=== PATIENT | male | born 1970 | race Two or more races ===

== ENCOUNTER 2019-06-28 07:14 | Inpatient (IN) | payer OTHER ==
[~2019-06-28] VITALS: Ht 170.2 cm; Wt 54.0 kg
[2019-06-28] MEDS ORDERED: PROPOFOL 1000 MG/ISO-OSM 100 ML IV ONE (07:29)
[2019-06-28] MEDS ORDERED: KETAMINE HCL 50 MG/ML 10 ML VIAL IM ONE (07:45)
[2019-06-28] MEDS ORDERED: SUCCINYLCHOLINE CHLORIDE 20 MG/ML 10 ML VIAL IVP ONE (07:45)
[2019-06-28] MEDS ORDERED: ETOMIDATE 2 MG/ML 10 ML VIAL IVP ONE (07:45)
[2019-06-28] MEDS ORDERED: LORazepam 2 MG/ML VIAL IVP ONE (07:45)
[2019-06-28] MEDS: PROPOFOL 1000 MG/ISO-OSM 100 ML IV PRN ×2 (07:59→20:08)
[2019-06-28] MEDS ORDERED: PIPERACILLIN/TAZO 3.375 GM/D5W 50 ML IV ONE ×2 (08:00→16:00)
[2019-06-28 08:32] LABS: BASOPHILS % (AUTO) 0.8 % (0.0-2.0); EOSINOPHILS % (AUTO) 0.9 % (1.0-6.0); HEMATOCRIT 39.1 % (41-53); HEMOGLOBIN 12.6 g/dL (13.5-17.5); LYMPHOCYTES # (AUTO) 1.6 K/uL (1.0-4.8); LYMPHOCYTES % (AUTO) 16.7 % (22.0-44.0); MEAN CORPUSCULAR HEMOGLOBIN 25.9 pg (26.0-34.0); MEAN CORPUSCULAR HGB CONC 32.1 G/dL (31.0-37.0); MEAN CORPUSCULAR VOLUME 81 fL (80-100); MONOCYTES # (AUTO) 0.6 K/uL (0.1-1.0); NEUTROPHILS # (AUTO) 7.2 K/uL (1.8-7.7); NEUTROPHILS % (AUTO) 75.6 % (40.0-70.0); PLATELET COUNT (AUTO) 220 K/uL (150-450); RED BLOOD CELL COUNT(AUTO) 4.84 MIL/uL (4.50-5.90); RED CELL DISTRIBUTION WIDTH 14.4 % (11.5-14.5)
[2019-06-28 08:40] LABS: APPEARANCE,URINE CLEAR (CLEAR); BILIRUBIN,URINE NEGATIVE (NEGATIVE); GLUCOSE, URINE (UA) 100 mg/dL (NEGATIVE); KETONES,URINE NEGATIVE (NEGATIVE); LEUKOCYTE ESTERASE ,URINE NEGATIVE (NEGATIVE); NITRATE,URINE NEGATIVE (NEGATIVE); OCCULT BLOOD,URINE NEGATIVE (NEGATIVE); PH,URINE 5.5 (5.0-8.0); PROTEIN,URINE POS 1+ (NEGATIVE)
[2019-06-28 08:43] LABS: ANION GAP 10 mmol/L (8-16); CARBON DIOXIDE 23 mmol/L (22-29); CHLORIDE 105 mmol/L (98-107); CREATININE 1.11 mg/dL (0.60-1.30); GLOMERULAR FILTR. RATE CALC > 60 mL/min (>60); GLUCOSE,RANDOM 200 mg/dL (70-110); POTASSIUM 4.1 mmol/L (3.5-5.1); SODIUM SERUM 138 mmol/L (136-145); UREA NITROGEN, BLOOD 22 mg/dL (7-18)
[2019-06-28 08:44] LABS: INR 1.1 (0.9-1.1); PROTHROMBIN TIME 11.3 SEC (9.4-11.6)
[2019-06-28 08:44] LABS: AMPHET/METH SCREEN,URINE POSITIVE (NEGATIVE); BARBITURATE SCREEN, URINE NEGATIVE (NEGATIVE); BENZODIAZEPINES SCREEN,URINE NEGATIVE (NEGATIVE); CANNABINOID SCREEN,URINE NEGATIVE (NEGATIVE); COCAINE SCREEN,URINE NEGATIVE (NEGATIVE); METHADONE SCREEN, URINE POSITIVE (NEGATIVE); OPIATE SCREEN,URINE POSITIVE (NEGATIVE)
[2019-06-28 08:45] LABS: PHENCYCLIDINE SCREEN,URINE NEGATIVE (NEGATIVE)
[2019-06-28 08:49] LABS: RBC,URINE None Seen /HPF (0-2); WBC,URINE 0-2 /HPF (0-5)
[2019-06-28 08:50] LABS: BACTERIA,URINE None Seen /HPF (None Seen); SQUAMOUS EPITHELIAL CELL,UR Few /LPF (None Seen)
[2019-06-28 08:55] LABS: B-TYPE NATRIURETIC PEPTIDE 2770 pg/mL (0-100)
[2019-06-28 09:08] LABS: ALANINE AMINOTRANSFERASE 46 U/L (12-78); ALBUMIN 2.9 g/dL (3.4-5.0); ALKALINE PHOSPHATASE 132 U/L (46-116); ASPARTATE AMINOTRANSFERASE 58 U/L (15-37); BILIRUBIN,TOTAL 0.6 mg/dL (0.1-1.0); CREATINE KINASE, TOTAL ONLY 169 U/L (39-308); TOTAL PROTEIN, SERUM 7.4 g/dL (6.4-8.2)
[2019-06-28 09:15] LABS: ABG A-A DIFF O2 567.4 mmHg (10-20.0); ABG BASE EXCESS -3.9 mmol/L (-2.0-3.0); ABG HCO3 21.2 mmol/L (22.0-26.0); ABG METHEMOGLOBIN 0.3 % (0.0-1.5); ABG OXYGEN CONTENT 15.8 mL/dL (15.0-23.0); ABG OXYGEN SATURATION 96.1 % (95.0-98.0); ABG OXYHEMOGLOBIN 94.9 % (94.0-100.0); ABG PCO2 48 mmHg (35-45); ABG PH 7.295 (7.35-7.450); ABG TOTAL HEMOGLOBIN 11.8 G/dL (12.0-18.0); O2 DEVICE,BLOOD GAS VENTILATOR (ROOM AIR); PEEP,BG 5 cm H2O; PO2, ARTERIAL BG 94.9 mmHg (88.0-96.0); SITE, BLOOD GAS RT RADIAL; SOURCE, BLOOD GAS ARTERIAL; TEMPERATURE, FAHRENHEIT, BG 100.7 FAHREN (96.0-98.6); VT, ABG 500 ml
[2019-06-28] MEDS ORDERED: FUROSEMIDE 40 MG/4 ML VIAL IVP ONE (09:15)
[2019-06-28] MEDS ORDERED: DEXTROSE 50%-WATER 25 GM/50 ML SYRINGE IVP PRN (09:45)
[2019-06-28] MEDS ORDERED: SODIUM CHLORIDE 0.9% 1,000 ML IV ONE (09:45)
[2019-06-28] MEDS ORDERED: VANCOMYCIN HCL 1 GM/D5% WATER 200 ML IV ONE (10:00)
[2019-06-28] MEDS ORDERED: MAGNESIUM HYDROXIDE SUSPENSION 30 ML UDCUP PO PRN (10:00)
[2019-06-28] MEDS: DOXYCYCLINE HYCLATE 100 MG in DEXTROSE 5%-WATER 100 ML IV SCH (15:15)
[2019-06-28 16:00] VITALS: BP 157/99
[2019-06-28 16:17] VITALS: BP 157/99
[2019-06-28 16:44] LABS: INFLUENZA TYPE A NEGATIVE FOR TYPE A (NEGATIVE); INFLUENZA TYPE B NEGATIVE FOR TYPE B (NEGATIVE)
[2019-06-28] MEDS: PIPERACILLIN/TAZO 3.375 GM/D5W 50 ML IV SCH (17:55)
[2019-06-28] MEDS: HEPARIN SODIUM,PORCINE 5,000 UNITS/ML VIAL SQ SCH (18:10)
[2019-06-28] MEDS: VANCOMYCIN HCL 1.25 GM in DEXTROSE 5%-WATER 250 ML IV SCH (19:49)
[2019-06-28 20:00] VITALS: BP 157/97
[2019-06-28] MEDS: ACETAMINOPHEN 325 MG TABLET PO PRN (20:03)
[2019-06-28] MEDS: DOCUSATE SODIUM 100 MG CAPSULE PO SCH (21:11)
[2019-06-28] MEDS: HydrALAZINE HCL 20 MG/ML VIAL IVP PRN (21:34)
[2019-06-28] MEDS: LORazepam 2 MG/ML VIAL IVP PRN (22:10)
[2019-06-29] VITALS: BP 144/76
[2019-06-29] MEDS: PROPOFOL 1000 MG/ISO-OSM 100 ML IV PRN ×5 (00:38→21:28)
[2019-06-29] MEDS: DOXYCYCLINE HYCLATE 100 MG in DEXTROSE 5%-WATER 100 ML IV SCH ×2 (02:43→18:38)
[2019-06-29 02:46] LABS: GLUCOSE,POINT OF CARE 104 MG/DL (70-110)
[2019-06-29 02:46] LABS: GLUCOSE,POINT OF CARE 73 MG/DL (70-110)
[2019-06-29 04:00] VITALS: BP 158/83
[2019-06-29 05:23] LABS: ANION GAP 8 mmol/L (8-16); CALCIUM, TOTAL 7.8 mg/dL (8.8-10.5); CARBON DIOXIDE 28 mmol/L (22-29); CHLORIDE 104 mmol/L (98-107); CREATININE 0.86 mg/dL (0.60-1.30); GLOMERULAR FILTR. RATE CALC > 60 mL/min (>60); GLUCOSE,RANDOM 92 mg/dL (70-110); POTASSIUM 3.1 mmol/L (3.5-5.1); SODIUM SERUM 140 mmol/L (136-145)
[2019-06-29 05:29] LABS: UREA NITROGEN, BLOOD 18 mg/dL (7-18)
[2019-06-29 06:01] LABS: GLUCOSE,POINT OF CARE 104 MG/DL (70-110)
[2019-06-29] MEDS: PIPERACILLIN/TAZO 3.375 GM/D5W 50 ML IV SCH ×4 (06:20→18:38)
[2019-06-29] MEDS: HydrALAZINE HCL 20 MG/ML VIAL IVP PRN ×2 (06:26→16:23)
[2019-06-29 06:41] LABS: GLUCOSE,POINT OF CARE 86 MG/DL (70-110)
[2019-06-29 07:16] LABS: HIV 1-2 SCREEN 4TH GEN W/RFLX Non Reactive (Non Reactive)
[2019-06-29 08:00] VITALS: BP 142/99
[2019-06-29] MEDS: HEPARIN SODIUM,PORCINE 5,000 UNITS/ML VIAL SQ SCH ×3 (08:42→18:38)
[2019-06-29] MEDS: VANCOMYCIN HCL 1.25 GM in DEXTROSE 5%-WATER 250 ML IV SCH ×2 (08:43→20:00)
[2019-06-29] MEDS: DOCUSATE SODIUM 100 MG CAPSULE PO SCH ×2 (08:43→20:12)
[2019-06-29] MEDS: FAMOTIDINE 20 MG TABLET PO SCH (08:43)
[2019-06-29] MEDS ORDERED: SODIUM CHLORIDE 0.9% 1,000 ML IV ONE (08:50)
[2019-06-29] MEDS ORDERED: POTASSIUM CHLORIDE 20 MEQ ER TABLET PO PRN (10:15)
[2019-06-29] MEDS: POTASSIUM CHL 10 MEQ/WATER 50 ML IV PRN ×3 (10:47→16:45)
[2019-06-29] MEDS ORDERED: SODIUM CHLORIDE 0.9% 500 ML IV ONE (10:49)
[2019-06-29] MEDS: LORazepam 2 MG/ML VIAL IVP PRN (11:24)
[2019-06-29 12:00] VITALS: BP 142/99
[2019-06-29 13:02] LABS: GLUCOSE,POINT OF CARE 86 MG/DL (70-110)
[2019-06-29 16:00] VITALS: BP 163/100
[2019-06-29 19:06] LABS: GLUCOSE,POINT OF CARE 88 MG/DL (70-110)
[2019-06-29 20:00] VITALS: BP 148/79
[2019-06-29] MEDS ORDERED: INFLUENZA VIRUS VACCINE QVS 2019-20 (3YR+)/PF 60 MCG/0.5 ML SYRINGE IM ONE (20:45)
[2019-06-29] MEDS ORDERED: PNEUMOCOCCAL VACCINE POLYVALENT 0.5 ML VIAL [PPSV23] IM ONE (20:45)
[2019-06-29] MEDS: INSULIN REGULAR, HUMAN 100 UNITS/ML SQ PRN (23:09)
[2019-06-30] VITALS (8 sets, daily range): BP systolic 122–159; BP diastolic 68–105
[2019-06-30] MEDS: HEPARIN SODIUM,PORCINE 5,000 UNITS/ML VIAL SQ SCH ×3 (00:01→15:54)
[2019-06-30] MEDS: HydrALAZINE HCL 20 MG/ML VIAL IVP PRN ×2 (00:04→08:38)
[2019-06-30] MEDS: PIPERACILLIN/TAZO 3.375 GM/D5W 50 ML IV SCH ×4 (00:49→17:55)
[2019-06-30] MEDS ORDERED: SODIUM CHLORIDE 0.9% 250 ML IV ONE ×2 (00:52→18:02)
[2019-06-30] MEDS: PROPOFOL 1000 MG/ISO-OSM 100 ML IV PRN ×5 (02:41→21:21)
[2019-06-30] MEDS: DOXYCYCLINE HYCLATE 100 MG in DEXTROSE 5%-WATER 100 ML IV SCH ×2 (03:25→15:20)
[2019-06-30] MEDS: LORazepam 2 MG/ML VIAL IVP PRN ×3 (04:44→21:24)
[2019-06-30 05:44] LABS: BASOPHILS % (AUTO) 0.7 % (0.0-2.0); EOSINOPHILS % (AUTO) 1.4 % (1.0-6.0); HEMATOCRIT 31.8 % (41-53); HEMOGLOBIN 10.5 g/dL (13.5-17.5); LYMPHOCYTES # (AUTO) 0.8 K/uL (1.0-4.8); MEAN CORPUSCULAR HGB CONC 33.1 G/dL (31.0-37.0); MEAN CORPUSCULAR VOLUME 79 fL (80-100); MONOCYTES # (AUTO) 0.5 K/uL (0.1-1.0); MONOCYTES % (AUTO) 9.2 % (2.0-9.0); NEUTROPHILS # (AUTO) 3.7 K/uL (1.8-7.7); NEUTROPHILS % (AUTO) 72.7 % (40.0-70.0); PLATELET COUNT (AUTO) 163 K/uL (150-450); RED BLOOD CELL COUNT(AUTO) 4.05 MIL/uL (4.50-5.90); RED CELL DISTRIBUTION WIDTH 14.6 % (11.5-14.5)
[2019-06-30 05:59] LABS: ANION GAP 8 mmol/L (8-16); CALCIUM, TOTAL 8.3 mg/dL (8.8-10.5); CARBON DIOXIDE 27 mmol/L (22-29); CHLORIDE 106 mmol/L (98-107); GLOMERULAR FILTR. RATE CALC > 60 mL/min (>60); GLUCOSE,RANDOM 108 mg/dL (70-110); POTASSIUM 3.2 mmol/L (3.5-5.1); SODIUM SERUM 141 mmol/L (136-145); UREA NITROGEN, BLOOD 17 mg/dL (7-18); VANCOMYCIN,RANDOM 24.8 mcg/mL (25.0-50.0)
[2019-06-30] MEDS: POTASSIUM CHL 10 MEQ/WATER 50 ML IV PRN ×3 (06:27→11:06)
[2019-06-30 07:27] LABS: GLUCOSE,POINT OF CARE 98 MG/DL (70-110)
[2019-06-30 07:27] LABS: GLUCOSE,POINT OF CARE 113 MG/DL (70-110)
[2019-06-30] MEDS: VANCOMYCIN HCL 1.25 GM in DEXTROSE 5%-WATER 250 ML IV SCH ×2 (08:28→20:02)
[2019-06-30] MEDS: DOCUSATE SODIUM 100 MG CAPSULE PO SCH ×2 (09:00→21:18)
[2019-06-30] MEDS: FAMOTIDINE 20 MG TABLET PO SCH (09:54)
[2019-06-30 13:16] LABS: GLUCOSE,POINT OF CARE 122 MG/DL (70-110)
[2019-06-30 18:16] LABS: GLUCOSE,POINT OF CARE 88 MG/DL (70-110)
[2019-06-30] MEDS ORDERED: 0.9% SODIUM CHLORIDE 15 ML NEB SOLUTION NEB ONE (21:48)
[2019-07-01] VITALS: BP 133/84
[2019-07-01] MEDS: PIPERACILLIN/TAZO 3.375 GM/D5W 50 ML IV SCH ×5 (00:08→23:50)
[2019-07-01] MEDS: HEPARIN SODIUM,PORCINE 5,000 UNITS/ML VIAL SQ SCH ×4 (00:08→23:50)
[2019-07-01] MEDS: DOXYCYCLINE HYCLATE 100 MG in DEXTROSE 5%-WATER 100 ML IV SCH ×2 (03:00→15:35)
[2019-07-01] MEDS ORDERED: SODIUM CHLORIDE 0.9% 250 ML IV ONE ×2 (03:03→20:56)
[2019-07-01 04:00] VITALS: BP 152/73
[2019-07-01] MEDS: PROPOFOL 1000 MG/ISO-OSM 100 ML IV PRN ×4 (04:24→23:23)
[2019-07-01 07:21] LABS: GLUCOSE,POINT OF CARE 128 MG/DL (70-110)
[2019-07-01 07:21] LABS: GLUCOSE,POINT OF CARE 104 MG/DL (70-110)
[2019-07-01] MEDS: VANCOMYCIN HCL 1.25 GM in DEXTROSE 5%-WATER 250 ML IV SCH ×2 (07:46→20:58)
[2019-07-01 09:02] LABS: ALANINE AMINOTRANSFERASE 31 U/L (12-78); ALBUMIN 2.4 g/dL (3.4-5.0); ALKALINE PHOSPHATASE 96 U/L (46-116); ANION GAP 7 mmol/L (8-16); ASPARTATE AMINOTRANSFERASE 36 U/L (15-37); BILIRUBIN,TOTAL 0.5 mg/dL (0.1-1.0); CALCIUM, TOTAL 8.6 mg/dL (8.8-10.5); CARBON DIOXIDE 29 mmol/L (22-29); CHLORIDE 107 mmol/L (98-107); CREATININE 0.93 mg/dL (0.60-1.30); GLOMERULAR FILTR. RATE CALC > 60 mL/min (>60); GLUCOSE,RANDOM 124 mg/dL (70-110); PHOSPHORUS 4.2 mg/dL (2.5-4.9); POTASSIUM 3.7 mmol/L (3.5-5.1); SODIUM SERUM 143 mmol/L (136-145); TOTAL PROTEIN, SERUM 6.4 g/dL (6.4-8.2); UREA NITROGEN, BLOOD 17 mg/dL (7-18)
[2019-07-01] MEDS: LORazepam 2 MG/ML VIAL IVP PRN (09:09)
[2019-07-01] MEDS: FAMOTIDINE 20 MG TABLET PO SCH (09:09)
[2019-07-01] MEDS: DOCUSATE SODIUM 100 MG CAPSULE PO SCH ×2 (09:09→20:58)
[2019-07-01] MEDS: MORPHINE SULFATE 2 MG/ML SYRINGE IVP PRN (09:52)
[2019-07-01] MEDS ORDERED: FentaNYL CITRATE PF 500 MCG in DEXTROSE 5%-WATER 90 ML IV PRN ×2 (10:30→11:04)
[2019-07-01 10:57] LABS: ABG A-A DIFF O2 143.3 mmHg (10-20.0); ABG BASE EXCESS 0.6 mmol/L (-2.0-3.0); ABG CARBOXYHEMOGLOBIN 0.5 % (0.0-1.5); ABG HCO3 25.3 mmol/L (22.0-26.0); ABG METHEMOGLOBIN 0.3 % (0.0-1.5); ABG OXYGEN CONTENT 15.6 mL/dL (15.0-23.0); ABG OXYGEN SATURATION 95.1 % (95.0-98.0); ABG OXYHEMOGLOBIN 94.3 % (94.0-100.0); ABG PCO2 34 mmHg (35-45); ABG PH 7.472 (7.35-7.450); ABG TOTAL HEMOGLOBIN 11.7 G/dL (12.0-18.0); PO2, ARTERIAL BG 67.5 mmHg (88.0-96.0); SOURCE, BLOOD GAS ARTERIAL
[2019-07-01 10:58] LABS: O2 DEVICE,BLOOD GAS VENTILATOR (ROOM AIR); PEEP,BG 5 cm H2O; SITE, BLOOD GAS RT RADIAL; VT, ABG 500 ml
[2019-07-01 11:48] LABS: BASOPHILS % (AUTO) 0.8 % (0.0-2.0); EOSINOPHILS % (AUTO) 0.7 % (1.0-6.0); HEMATOCRIT 34.9 % (41-53); HEMOGLOBIN 11.2 g/dL (13.5-17.5); LYMPHOCYTES # (AUTO) 0.7 K/uL (1.0-4.8); LYMPHOCYTES % (AUTO) 12.5 % (22.0-44.0); MEAN CORPUSCULAR HEMOGLOBIN 25.3 pg (26.0-34.0); MEAN CORPUSCULAR VOLUME 79 fL (80-100); MONOCYTES # (AUTO) 0.5 K/uL (0.1-1.0); MONOCYTES % (AUTO) 8.2 % (2.0-9.0); NEUTROPHILS # (AUTO) 4.4 K/uL (1.8-7.7); NEUTROPHILS % (AUTO) 77.8 % (40.0-70.0); PLATELET COUNT (AUTO) 195 K/uL (150-450); RED BLOOD CELL COUNT(AUTO) 4.41 MIL/uL (4.50-5.90); RED CELL DISTRIBUTION WIDTH 14.6 % (11.5-14.5)
[2019-07-01 13:04] VITALS: BP 154/92
[2019-07-01] MEDS: QUEtiapine FUMARATE 25 MG TABLET PO SCH ×2 (15:35→21:02)
[2019-07-01 16:00] VITALS: BP 140/84
[2019-07-01 16:11] LABS: GLUCOSE,POINT OF CARE 86 MG/DL (70-110)
[2019-07-01 18:11] LABS: GLUCOSE,POINT OF CARE 95 MG/DL (70-110)
[2019-07-01 20:00] VITALS: BP 147/85
[2019-07-01] MEDS ORDERED: QUEtiapine FUMARATE 25 MG TABLET PO SCH (21:00)
[2019-07-01] MEDS: AMINO ACIDS/PROTEIN HYDROLYS 30 ML TUBE PO SCH (21:00)
[2019-07-02] VITALS (8 sets, daily range): BP systolic 150–180; BP diastolic 86–123
[2019-07-02 00:26] LABS: GLUCOSE,POINT OF CARE 100 MG/DL (70-110)
[2019-07-02] MEDS: DOXYCYCLINE HYCLATE 100 MG in DEXTROSE 5%-WATER 100 ML IV SCH ×2 (02:56→15:30)
[2019-07-02] MEDS: LORazepam 2 MG/ML VIAL IVP PRN ×2 (03:39→14:02)
[2019-07-02 04:59] LABS: ANION GAP 6 mmol/L (8-16); CALCIUM, TOTAL 8.3 mg/dL (8.8-10.5); CARBON DIOXIDE 30 mmol/L (22-29); CHLORIDE 110 mmol/L (98-107); CREATININE 0.91 mg/dL (0.60-1.30); GLOMERULAR FILTR. RATE CALC > 60 mL/min (>60); GLUCOSE,RANDOM 104 mg/dL (70-110); POTASSIUM 3.2 mmol/L (3.5-5.1); SODIUM SERUM 146 mmol/L (136-145); UREA NITROGEN, BLOOD 18 mg/dL (7-18)
[2019-07-02] MEDS: PROPOFOL 1000 MG/ISO-OSM 100 ML IV PRN (05:27)
[2019-07-02] MEDS: PIPERACILLIN/TAZO 3.375 GM/D5W 50 ML IV SCH ×3 (05:50→17:49)
[2019-07-02] MEDS: POTASSIUM CHL 10 MEQ/WATER 50 ML IV PRN ×3 (06:30→08:21)
[2019-07-02] MEDS: HEPARIN SODIUM,PORCINE 5,000 UNITS/ML VIAL SQ SCH ×2 (08:00→17:48)
[2019-07-02 08:11] LABS: ABG A-A DIFF O2 87.4 mmHg (10-20.0); ABG BASE EXCESS 2.2 mmol/L (-2.0-3.0); ABG CARBOXYHEMOGLOBIN 0.6 % (0.0-1.5); ABG HCO3 26.5 mmol/L (22.0-26.0); ABG METHEMOGLOBIN 0.3 % (0.0-1.5); ABG OXYGEN SATURATION 98.6 % (95.0-98.0); ABG OXYHEMOGLOBIN 97.7 % (94.0-100.0); ABG PCO2 37 mmHg (35-45); ABG PH 7.467 (7.35-7.450); ABG TOTAL HEMOGLOBIN 11.5 G/dL (12.0-18.0); PO2, ARTERIAL BG 119.5 mmHg (88.0-96.0); SOURCE, BLOOD GAS ARTERIAL; TEMPERATURE, FAHRENHEIT, BG 98.6 FAHREN (96.0-98.6)
[2019-07-02 08:13] LABS: O2 DEVICE,BLOOD GAS VENTILATOR (ROOM AIR); SITE, BLOOD GAS RT RADIAL; VT, ABG 500 ml
[2019-07-02 08:14] LABS: PEEP,BG 5 cm H2O
[2019-07-02 08:16] LABS: GLUCOSE,POINT OF CARE 89 MG/DL (70-110)
[2019-07-02] MEDS: QUEtiapine FUMARATE 25 MG TABLET PO SCH ×2 (08:16→21:17)
[2019-07-02] MEDS: FAMOTIDINE 20 MG TABLET PO SCH (08:16)
[2019-07-02] MEDS: DOCUSATE SODIUM 100 MG CAPSULE PO SCH ×2 (08:16→21:16)
[2019-07-02] MEDS: MULTIVITAMINS WITH MINERALS, THERAPEUTIC 15 ML UDCUP NG SCH (08:16)
[2019-07-02] MEDS: VANCOMYCIN HCL 1.25 GM in DEXTROSE 5%-WATER 250 ML IV SCH ×2 (08:17→20:59)
[2019-07-02] MEDS: AMINO ACIDS/PROTEIN HYDROLYS 30 ML TUBE PO SCH ×2 (09:00→21:00)
[2019-07-02] MEDS: HydrALAZINE HCL 20 MG/ML VIAL IVP PRN ×3 (10:32→21:39)
[2019-07-02 11:32] LABS: ABG TOTAL HEMOGLOBIN 11.8 G/dL (12.0-18.0); SOURCE, BLOOD GAS ARTERIAL; TEMPERATURE, FAHRENHEIT, BG 98.6 FAHREN (96.0-98.6)
[2019-07-02 11:53] LABS: ABG A-A DIFF O2 41.5 mmHg (10-20.0); ABG BASE EXCESS 2.7 mmol/L (-2.0-3.0); ABG CARBOXYHEMOGLOBIN 0.6 % (0.0-1.5); ABG HCO3 27.2 mmol/L (22.0-26.0); ABG METHEMOGLOBIN 0.1 % (0.0-1.5); ABG OXYGEN CONTENT 16.7 mL/dL (15.0-23.0); ABG OXYGEN SATURATION 99.1 % (95.0-98.0); ABG OXYHEMOGLOBIN 98.4 % (94.0-100.0); ABG PCO2 34 mmHg (35-45); PO2, ARTERIAL BG 168.5 mmHg (88.0-96.0)
[2019-07-02 12:03] LABS: O2 DEVICE,BLOOD GAS VENTILATOR (ROOM AIR); SITE, BLOOD GAS RT BRACHIAL; VENT MODE, BG SPONTANEOUS (ROOM AIR)
[2019-07-02 12:04] LABS: CPAP, BG 0 cm H2O; PEEP,BG 0 cm H2O; PRESSURE SUPPORT, BG 8 cm H2O; SPONTANEOUS VT, BG 438 ml
[2019-07-02 12:41] LABS: GLUCOSE,POINT OF CARE 94 MG/DL (70-110)
[2019-07-02] MEDS: MORPHINE SULFATE 2 MG/ML SYRINGE IVP PRN (14:02)
[2019-07-02] MEDS: CARVEDILOL 3.125 MG TABLET PO SCH ×2 (14:29→21:16)
[2019-07-02] MEDS: FUROSEMIDE 20 MG/2 ML VIAL IVP SCH ×2 (14:29→20:59)
[2019-07-02] MEDS: VALSARTAN 40 MG TABLET PO SCH ×2 (15:22→23:03)
[2019-07-02 19:31] LABS: GLUCOSE,POINT OF CARE 104 MG/DL (70-110)
[2019-07-03] VITALS (7 sets, daily range): BP systolic 129–176; BP diastolic 80–111
[2019-07-03] MEDS ORDERED: SODIUM CHLORIDE 0.9% 250 ML IV ONE ×3 (00:03→15:11)
[2019-07-03] MEDS: HEPARIN SODIUM,PORCINE 5,000 UNITS/ML VIAL SQ SCH ×3 (00:06→16:51)
[2019-07-03] MEDS: PIPERACILLIN/TAZO 3.375 GM/D5W 50 ML IV SCH ×4 (00:06→17:42)
[2019-07-03] MEDS: INSULIN REGULAR, HUMAN 100 UNITS/ML SQ PRN ×2 (00:26→11:37)
[2019-07-03] MEDS: DOXYCYCLINE HYCLATE 100 MG in DEXTROSE 5%-WATER 100 ML IV SCH ×2 (03:07→15:27)
[2019-07-03 04:50] LABS: BASOPHILS % (AUTO) 1.2 % (0.0-2.0); EOSINOPHILS % (AUTO) 1.5 % (1.0-6.0); HEMATOCRIT 37.3 % (41-53); HEMOGLOBIN 12.2 g/dL (13.5-17.5); LYMPHOCYTES # (AUTO) 1.2 K/uL (1.0-4.8); LYMPHOCYTES % (AUTO) 16.2 % (22.0-44.0); MEAN CORPUSCULAR HEMOGLOBIN 25.4 pg (26.0-34.0); MEAN CORPUSCULAR HGB CONC 32.7 G/dL (31.0-37.0); MEAN CORPUSCULAR VOLUME 78 fL (80-100); MONOCYTES # (AUTO) 0.6 K/uL (0.1-1.0); MONOCYTES % (AUTO) 8.8 % (2.0-9.0); NEUTROPHILS # (AUTO) 5.2 K/uL (1.8-7.7); NEUTROPHILS % (AUTO) 72.3 % (40.0-70.0); PLATELET COUNT (AUTO) 254 K/uL (150-450); RED BLOOD CELL COUNT(AUTO) 4.79 MIL/uL (4.50-5.90); RED CELL DISTRIBUTION WIDTH 14.7 % (11.5-14.5)
[2019-07-03] MEDS: MORPHINE SULFATE 2 MG/ML SYRINGE IVP PRN (05:01)
[2019-07-03 05:16] LABS: ALANINE AMINOTRANSFERASE 32 U/L (12-78); ALBUMIN 2.6 g/dL (3.4-5.0); ALKALINE PHOSPHATASE 102 U/L (46-116); ANION GAP 7 mmol/L (8-16); ASPARTATE AMINOTRANSFERASE 35 U/L (15-37); BILIRUBIN,TOTAL 0.7 mg/dL (0.1-1.0); CALCIUM, TOTAL 8.8 mg/dL (8.8-10.5); CARBON DIOXIDE 31 mmol/L (22-29); CHLORIDE 105 mmol/L (98-107); GLOMERULAR FILTR. RATE CALC > 60 mL/min (>60); GLUCOSE,RANDOM 128 mg/dL (70-110); POTASSIUM 3.3 mmol/L (3.5-5.1); SODIUM SERUM 143 mmol/L (136-145); UREA NITROGEN, BLOOD 20 mg/dL (7-18); VANCOMYCIN,RANDOM 33.4 mcg/mL (25.0-50.0)
[2019-07-03 06:16] LABS: GLUCOSE,POINT OF CARE 134 MG/DL (70-110)
[2019-07-03 06:16] LABS: GLUCOSE,POINT OF CARE 130 MG/DL (70-110)
[2019-07-03] MEDS: POTASSIUM CHL 10 MEQ/WATER 50 ML IV PRN ×4 (06:20→09:29)
[2019-07-03] MEDS: QUEtiapine FUMARATE 25 MG TABLET PO SCH ×2 (07:59→20:28)
[2019-07-03] MEDS: VALSARTAN 40 MG TABLET PO SCH (08:00)
[2019-07-03] MEDS: FUROSEMIDE 20 MG/2 ML VIAL IVP SCH ×2 (08:01→08:56)
[2019-07-03] MEDS: VANCOMYCIN HCL 1.25 GM in DEXTROSE 5%-WATER 250 ML IV SCH ×2 (08:02→20:28)
[2019-07-03] MEDS: DOCUSATE SODIUM 100 MG CAPSULE PO SCH ×2 (09:01→20:28)
[2019-07-03] MEDS: CARVEDILOL 3.125 MG TABLET PO SCH (09:02)
[2019-07-03] MEDS: MULTIVITAMINS WITH MINERALS, THERAPEUTIC 15 ML UDCUP NG SCH (09:02)
[2019-07-03] MEDS: FAMOTIDINE 20 MG TABLET PO SCH (09:02)
[2019-07-03] MEDS: VALSARTAN 80 MG TABLET PO SCH ×2 (11:35→20:28)
[2019-07-03 14:06] LABS: LEGIONELLA PNEUMO AG URINE Negative (Negative); ORGANISM ID Not indicated.; S PNEUMO SOURCE Urine; STREP PNEUMONIAE AG URINE Negative (Negative); STREP.PNEUMO BODY FLUID CULT. Not Indicated
[2019-07-03] MEDS ORDERED: VALSARTAN 80 MG TABLET PO ONE (16:45)
[2019-07-03] MEDS ORDERED: CARVEDILOL 6.25 MG TABLET PO ONE (16:45)
[2019-07-03 16:55] LABS: GLUCOSE,POINT OF CARE 180 MG/DL (70-110)
[2019-07-03] MEDS ORDERED: GLUCAGON,HUMAN RECOMBINANT 1 MG VIAL IM PRN (18:00)
[2019-07-03] MEDS ORDERED: DEXTROSE 50%-WATER 25 GM/50 ML SYRINGE IVP PRN (18:00)
[2019-07-03] MEDS ORDERED: INSULIN LISPRO 100 UNITS/ML SQ PRN (18:00)
[2019-07-03] MEDS: INSULIN LISPRO 100 UNITS/ML SQ PRN ×2 (18:37→21:39)
[2019-07-03] MEDS: CARVEDILOL 6.25 MG TABLET PO SCH (20:29)
[2019-07-03] MEDS: LORazepam 2 MG/ML VIAL IVP PRN (20:29)
[2019-07-04] VITALS (8 sets, daily range): BP systolic 124–180; BP diastolic 94–117
[2019-07-04] MEDS: PIPERACILLIN/TAZO 3.375 GM/D5W 50 ML IV SCH ×6 (00:02→18:20)
[2019-07-04] MEDS: HEPARIN SODIUM,PORCINE 5,000 UNITS/ML VIAL SQ SCH ×3 (00:02→16:36)
[2019-07-04] MEDS: DOXYCYCLINE HYCLATE 100 MG in DEXTROSE 5%-WATER 100 ML IV SCH ×2 (03:52→16:37)
[2019-07-04] MEDS: ACETAMINOPHEN 325 MG TABLET PO PRN (04:38)
[2019-07-04] MEDS: INSULIN LISPRO 100 UNITS/ML SQ PRN ×2 (06:05→22:02)
[2019-07-04 06:55] LABS: BASOPHILS % (AUTO) 0.7 % (0.0-2.0); EOSINOPHILS % (AUTO) 1.4 % (1.0-6.0); HEMATOCRIT 37.1 % (41-53); HEMOGLOBIN 12.2 g/dL (13.5-17.5); LYMPHOCYTES # (AUTO) 1.6 K/uL (1.0-4.8); LYMPHOCYTES % (AUTO) 19.5 % (22.0-44.0); MEAN CORPUSCULAR HEMOGLOBIN 25.6 pg (26.0-34.0); MEAN CORPUSCULAR VOLUME 78 fL (80-100); MONOCYTES # (AUTO) 0.7 K/uL (0.1-1.0); MONOCYTES % (AUTO) 8.9 % (2.0-9.0); NEUTROPHILS # (AUTO) 5.8 K/uL (1.8-7.7); NEUTROPHILS % (AUTO) 69.5 % (40.0-70.0); PLATELET COUNT (AUTO) 236 K/uL (150-450); RED BLOOD CELL COUNT(AUTO) 4.77 MIL/uL (4.50-5.90); RED CELL DISTRIBUTION WIDTH 14.6 % (11.5-14.5)
[2019-07-04 07:25] LABS: ALBUMIN 2.6 g/dL (3.4-5.0); ALKALINE PHOSPHATASE 97 U/L (46-116); ANION GAP 6 mmol/L (8-16); ASPARTATE AMINOTRANSFERASE 39 U/L (15-37); BILIRUBIN,TOTAL 0.6 mg/dL (0.1-1.0); CALCIUM, TOTAL 8.9 mg/dL (8.8-10.5); CARBON DIOXIDE 29 mmol/L (22-29); CHLORIDE 102 mmol/L (98-107); CREATININE 1.09 mg/dL (0.60-1.30); GLOMERULAR FILTR. RATE CALC > 60 mL/min (>60); GLUCOSE,RANDOM 108 mg/dL (70-110); POTASSIUM 3.6 mmol/L (3.5-5.1); SODIUM SERUM 137 mmol/L (136-145); UREA NITROGEN, BLOOD 30 mg/dL (7-18)
[2019-07-04 07:37] LABS: ALANINE AMINOTRANSFERASE 41 U/L (12-78)
[2019-07-04 07:40] LABS: GLUCOMETER DEV NAME(LOC) 5S.1; GLUCOSE,POINT OF CARE 162 MG/DL (70-110)
[2019-07-04 07:40] LABS: GLUCOMETER DEV NAME(LOC) 5S.1; GLUCOSE,POINT OF CARE 128 MG/DL (70-110)
[2019-07-04] MEDS: CARVEDILOL 6.25 MG TABLET PO SCH (09:40)
[2019-07-04] MEDS: FAMOTIDINE 20 MG TABLET PO SCH (09:41)
[2019-07-04] MEDS: QUEtiapine FUMARATE 25 MG TABLET PO SCH ×2 (09:41→20:51)
[2019-07-04] MEDS: DOCUSATE SODIUM 100 MG CAPSULE PO SCH ×2 (09:41→20:51)
[2019-07-04] MEDS: FUROSEMIDE 20 MG/2 ML VIAL IVP SCH (09:43)
[2019-07-04] MEDS: VANCOMYCIN HCL 1.25 GM in DEXTROSE 5%-WATER 250 ML IV SCH ×2 (11:15→20:52)
[2019-07-04] MEDS: VALSARTAN 80 MG TABLET PO SCH (12:22)
[2019-07-04] MEDS: MULTIVITAMINS WITH MINERALS, THERAPEUTIC 15 ML UDCUP NG SCH (12:22)
[2019-07-04] MEDS: CARVEDILOL 12.5 MG TABLET PO SCH ×2 (14:49→20:52)
[2019-07-04] MEDS: LOSARTAN POTASSIUM 50 MG TABLET PO SCH (14:49)
[2019-07-04] MEDS ORDERED: CloNIDine HCL 0.1 MG TABLET PO ONE (17:45)
[2019-07-04] MEDS ORDERED: CARVEDILOL 12.5 MG TABLET PO SCH (21:00)
[2019-07-04] MEDS: LORazepam 2 MG/ML VIAL IVP PRN (21:49)
[2019-07-05] MEDS: HEPARIN SODIUM,PORCINE 5,000 UNITS/ML VIAL SQ SCH ×2 (00:05→09:14)
[2019-07-05] MEDS: PIPERACILLIN/TAZO 3.375 GM/D5W 50 ML IV SCH ×2 (00:05→06:35)
[2019-07-05 00:07] VITALS: BP 146/82
[2019-07-05] MEDS: DOXYCYCLINE HYCLATE 100 MG in DEXTROSE 5%-WATER 100 ML IV SCH (03:23)
[2019-07-05 05:32] VITALS: BP 157/89
[2019-07-05 06:03] LABS: GLUCOMETER DEV NAME(LOC) 5S.1; GLUCOSE,POINT OF CARE 142 MG/DL (70-110)
[2019-07-05 06:04] LABS: GLUCOMETER DEV NAME(LOC) 5S.1; GLUCOSE,POINT OF CARE 152 MG/DL (70-110)
[2019-07-05 06:05] LABS: GLUCOMETER DEV NAME(LOC) 5S.2A; GLUCOSE,POINT OF CARE 100 MG/DL (70-110)
[2019-07-05 06:08] LABS: BASOPHILS % (AUTO) 0.6 % (0.0-2.0); EOSINOPHILS % (AUTO) 2.2 % (1.0-6.0); HEMATOCRIT 35.1 % (41-53); HEMOGLOBIN 11.6 g/dL (13.5-17.5); LYMPHOCYTES # (AUTO) 1.6 K/uL (1.0-4.8); LYMPHOCYTES % (AUTO) 19.7 % (22.0-44.0); MEAN CORPUSCULAR HEMOGLOBIN 25.6 pg (26.0-34.0); MEAN CORPUSCULAR VOLUME 78 fL (80-100); MONOCYTES # (AUTO) 0.8 K/uL (0.1-1.0); MONOCYTES % (AUTO) 9.5 % (2.0-9.0); NEUTROPHILS # (AUTO) 5.4 K/uL (1.8-7.7); PLATELET COUNT (AUTO) 183 K/uL (150-450); RED BLOOD CELL COUNT(AUTO) 4.53 MIL/uL (4.50-5.90); RED CELL DISTRIBUTION WIDTH 14.5 % (11.5-14.5)
[2019-07-05] MEDS: INSULIN LISPRO 100 UNITS/ML SQ PRN (06:37)
[2019-07-05 06:41] LABS: ALANINE AMINOTRANSFERASE 53 U/L (12-78); ALBUMIN 2.5 g/dL (3.4-5.0); ALKALINE PHOSPHATASE 102 U/L (46-116); ANION GAP 5 mmol/L (8-16); ASPARTATE AMINOTRANSFERASE 45 U/L (15-37); BILIRUBIN,TOTAL 0.4 mg/dL (0.1-1.0); CALCIUM, TOTAL 8.4 mg/dL (8.8-10.5); CARBON DIOXIDE 29 mmol/L (22-29); CHLORIDE 105 mmol/L (98-107); CREATININE 1.06 mg/dL (0.60-1.30); GLOMERULAR FILTR. RATE CALC > 60 mL/min (>60); GLUCOSE,RANDOM 133 mg/dL (70-110); POTASSIUM 3.9 mmol/L (3.5-5.1); SODIUM SERUM 139 mmol/L (136-145); TOTAL PROTEIN, SERUM 6.2 g/dL (6.4-8.2); UREA NITROGEN, BLOOD 28 mg/dL (7-18)
[2019-07-05 08:15] VITALS: BP 159/96
[2019-07-05] MEDS: FUROSEMIDE 20 MG/2 ML VIAL IVP SCH (09:14)
[2019-07-05] MEDS: DOCUSATE SODIUM 100 MG CAPSULE PO SCH (09:14)
[2019-07-05] MEDS: QUEtiapine FUMARATE 25 MG TABLET PO SCH (09:15)
[2019-07-05] MEDS: MULTIVITAMINS WITH MINERALS, THERAPEUTIC 15 ML UDCUP NG SCH (09:15)
[2019-07-05] MEDS: CARVEDILOL 12.5 MG TABLET PO SCH (09:15)
[2019-07-05] MEDS: FAMOTIDINE 20 MG TABLET PO SCH (09:15)
[2019-07-05] MEDS: LOSARTAN POTASSIUM 50 MG TABLET PO SCH (09:15)
[2019-07-05] MEDS: VANCOMYCIN HCL 1.25 GM in DEXTROSE 5%-WATER 250 ML IV SCH (09:16)
[2019-07-05 23:05] LABS: GLUCOMETER DEV NAME(LOC) 5S.1; GLUCOSE,POINT OF CARE 163 MG/DL (70-110)
== END 2019-07-05 11:43 | disposition left against medical advice (07) | DRG 720 ==
LOC: EMS 07:23 → ICU 15:08 → 5N 07-03 12:35
PROVIDERS: ADMIT Internal Medicine; ATTEND Internal Medicine
PROC: 5A1955Z Respiratory Ventilation, Greater than 96 Consecutive Hours (ICD-10-PCS; principal; 2019-06-28)
PROC: 0BH17EZ Insertion of Endotracheal Airway into Trachea, Via Natural or Artificial Opening (ICD-10-PCS; 2019-06-28)
PROC: 02HV33Z Insertion of Infusion Device into Superior Vena Cava, Percutaneous Approach (ICD-10-PCS; 2019-07-01)
DX: A41.9 Sepsis, unspecified organism (principal); I21.4 Non-ST elevation (NSTEMI) myocardial infarction; G92 Toxic encephalopathy; E43 Unspecified severe protein-calorie malnutrition; J18.9 Pneumonia, unspecified organism; J96.00 Acute respiratory failure, unspecified whether with hypoxia or hypercapnia; I11.0 Hypertensive heart disease with heart failure; J96.01 Acute respiratory failure with hypoxia; I50.9 Heart failure, unspecified; E11.65 Type 2 diabetes mellitus with hyperglycemia; E87.6 Hypokalemia; F15.10 Other stimulant abuse, uncomplicated; I42.0 Dilated cardiomyopathy; Z59.0 Homelessness; Z68.1 Body mass index [BMI] 19.9 or less, adult
CPT/HCPCS: 36600; 51702; 82805; 83735; 84100; 84132; 84145; 84443; 87040; 87070; 87081; 87205; 87340; 87389; 87449; 87804; 87899; 92610; 93005; 93306; 94002; 94003; 96374; 96375; 97110; 97116; 97162; 97530; 99291; 99292; G0378; G0480; J0360; J1644; J1940; J2060; J2270; J2543; J2704; J3010; J3370; J3480; J3490; J7030; J7040; J7050; J7060

== ENCOUNTER 2019-09-16 19:22 | Emergency (ER) | payer OTHER ==
[~2019-09-16] VITALS: Ht 170.2 cm; Wt 61.4 kg
[2019-09-16 19:45] VITALS: BP 175/120
[2019-09-16 20:36] LABS: GLUCOSE,POINT OF CARE 94 MG/DL (70-110)
== END 2019-09-17 00:18 | disposition left against medical advice (07) ==
LOC: EMS 19:23
DX: R07.9 Chest pain, unspecified (principal); R06.02 Shortness of breath; F20.9 Schizophrenia, unspecified; I10 Essential (primary) hypertension; R60.0 Localized edema; F17.210 Nicotine dependence, cigarettes, uncomplicated; E11.9 Type 2 diabetes mellitus without complications; Z59.0 Homelessness

== ENCOUNTER 2019-11-14 11:02 | Inpatient (IN) | payer OTHER ==
[~2019-11-14] VITALS: Ht 167.6 cm; Wt 67.4 kg
[2019-11-14 11:43] LABS: GLUCOSE,POINT OF CARE 143 MG/DL (70-110)
[2019-11-14] MEDS ORDERED: ACETAMINOPHEN 325 MG TABLET PO PRN (13:30)
[2019-11-14] MEDS ORDERED: DEXTROSE 50%-WATER 25 GM/50 ML SYRINGE IVP PRN (13:30)
[2019-11-14] MEDS ORDERED: INSULIN LISPRO 100 UNITS/ML SQ PRN (13:30)
[2019-11-14 13:49] LABS: ANION GAP 14 mmol/L (8-16); CALCIUM, TOTAL 8.8 mg/dL (8.8-10.5); CARBON DIOXIDE 20 mmol/L (22-29); CHLORIDE 102 mmol/L (98-107); CREATININE 1.13 mg/dL (0.60-1.30); GLOMERULAR FILTR. RATE CALC > 60 mL/min (>60); GLUCOSE,RANDOM 129 mg/dL (70-110); POTASSIUM 4.3 mmol/L (3.5-5.1); SODIUM SERUM 136 mmol/L (136-145); UREA NITROGEN, BLOOD 31 mg/dL (7-18)
[2019-11-14 13:55] LABS: ALANINE AMINOTRANSFERASE 31 U/L (12-78); ALBUMIN 2.3 g/dL (3.4-5.0); ALKALINE PHOSPHATASE 117 U/L (46-116); ASPARTATE AMINOTRANSFERASE 25 U/L (15-37); BILIRUBIN,TOTAL 1.7 mg/dL (0.1-1.0); CREATINE KINASE, TOTAL ONLY 39 U/L (39-308); TOTAL PROTEIN, SERUM 7.1 g/dL (6.4-8.2)
[2019-11-14] MEDS: ALBUTEROL SULFATE 2.5 MG/0.5 ML NEB SOLUTION NEB SCH ×3 (15:00→23:00)
[2019-11-14] MEDS: ASPIRIN 81 MG CHEWABLE TABLET PO SCH (15:12)
[2019-11-14 15:32] LABS: APPEARANCE,URINE CLEAR (CLEAR); GLUCOSE, URINE (UA) NEGATIVE (NEGATIVE); KETONES,URINE NEGATIVE (NEGATIVE); LEUKOCYTE ESTERASE ,URINE SMALL (NEGATIVE); NITRATE,URINE NEGATIVE (NEGATIVE); OCCULT BLOOD,URINE NEGATIVE (NEGATIVE); PROTEIN,URINE SEE CONFIRM (NEGATIVE)
[2019-11-14 15:37] LABS: BILIRUBIN,URINE PRELIM. POSITIVE (NEGATIVE)
[2019-11-14 15:42] LABS: SULFOSALICYLIC ACID,URINE 3+ (Negative)
[2019-11-14 15:44] LABS: RBC,URINE None Seen /HPF (0-2); WBC,URINE 0-2 /HPF (0-5)
[2019-11-14 15:45] LABS: BACTERIA,URINE Moderate /HPF (None Seen); SQUAMOUS EPITHELIAL CELL,UR Few /LPF (None Seen)
[2019-11-14 15:53] LABS: BASOPHILS % (AUTO) 0.4 % (0.0-2.0); EOSINOPHILS % (AUTO) 0 % (1.0-6.0); HEMOGLOBIN 9.6 g/dL (13.5-17.5); LYMPHOCYTES # (AUTO) 0.6 K/uL (1.0-4.8); LYMPHOCYTES % (AUTO) 3.1 % (22.0-44.0); MEAN CORPUSCULAR HEMOGLOBIN 21.1 pg (26.0-34.0); MEAN CORPUSCULAR VOLUME 70 fL (80-100); MONOCYTES # (AUTO) 0.7 K/uL (0.1-1.0); MONOCYTES % (AUTO) 3.4 % (2.0-9.0); NEUTROPHILS # (AUTO) 18.8 K/uL (1.8-7.7); PLATELET COUNT (AUTO) 225 K/uL (150-450); RED BLOOD CELL COUNT(AUTO) 4.57 MIL/uL (4.50-5.90); RED CELL DISTRIBUTION WIDTH 22.9 % (11.5-14.5)
[2019-11-14 15:55] LABS: INR 1.3 (0.9-1.1); PROTHROMBIN TIME 12.7 SEC (9.4-11.6)
[2019-11-14 15:58] LABS: NEUTROPHILS % (AUTO) 93.1 % (40.0-70.0)
[2019-11-14] MEDS ORDERED: DOXYCYCLINE HYCLATE 100 MG in DEXTROSE 5%-WATER 100 ML IV ONE (16:15)
[2019-11-14] MEDS ORDERED: CefTRIAXone 1 GM/DEXTROSE 50 ML IV ONE (16:15)
[2019-11-14] MEDS: HEPARIN SODIUM,PORCINE 5,000 UNITS/ML VIAL SQ SCH (16:37)
[2019-11-14] MEDS: BUMETANIDE 0.25 MG/ML 4 ML VIAL IVP SCH ×2 (16:38→21:36)
[2019-11-14] MEDS ORDERED: SODIUM CHLORIDE 0.9% 250 ML IV ONE (17:21)
[2019-11-14 17:26] VITALS: BP 153/90
[2019-11-14] MEDS ORDERED: INFLUENZA VIRUS VACCINE QVS 2019-20 (3YR+)/PF 60 MCG/0.5 ML SYRINGE IM ONE (18:45)
[2019-11-14] MEDS ORDERED: PNEUMOCOCCAL VACCINE POLYVALENT 0.5 ML VIAL [PPSV23] IM ONE (18:45)
[2019-11-14] MEDS: DOCUSATE SODIUM 100 MG CAPSULE PO SCH (21:36)
[2019-11-14 21:46] VITALS: BP 153/99
[2019-11-14] MEDS ORDERED: LORazepam 1 MG TABLET PO PRN (23:30)
[2019-11-15] MEDS ORDERED: 0.9% SODIUM CHLORIDE 5 ML NEB SOLUTION NEB ONE (02:08)
[2019-11-15] MEDS: HEPARIN SODIUM,PORCINE 5,000 UNITS/ML VIAL SQ SCH ×2 (02:45→08:00)
[2019-11-15] MEDS: ALBUTEROL SULFATE 2.5 MG/0.5 ML NEB SOLUTION NEB SCH (03:00)
[2019-11-15 04:40] VITALS: BP 142/113
[2019-11-15 06:59] LABS: BASOPHILS % (AUTO) 0.4 % (0.0-2.0); EOSINOPHILS % (AUTO) 0.2 % (1.0-6.0); HEMATOCRIT 33.9 % (41-53); HEMOGLOBIN 10.3 g/dL (13.5-17.5); LYMPHOCYTES # (AUTO) 1.1 K/uL (1.0-4.8); LYMPHOCYTES % (AUTO) 5.3 % (22.0-44.0); MEAN CORPUSCULAR HEMOGLOBIN 21.2 pg (26.0-34.0); MEAN CORPUSCULAR HGB CONC 30.3 G/dL (31.0-37.0); MEAN CORPUSCULAR VOLUME 70 fL (80-100); MONOCYTES # (AUTO) 0.8 K/uL (0.1-1.0); MONOCYTES % (AUTO) 4.2 % (2.0-9.0); NEUTROPHILS # (AUTO) 17.9 K/uL (1.8-7.7); PLATELET COUNT (AUTO) 212 K/uL (150-450); RED BLOOD CELL COUNT(AUTO) 4.84 MIL/uL (4.50-5.90)
[2019-11-15 07:05] LABS: NEUTROPHILS % (AUTO) 89.9 % (40.0-70.0)
[2019-11-15 07:25] LABS: ANION GAP 14 mmol/L (8-16); CALCIUM, TOTAL 8.9 mg/dL (8.8-10.5); CARBON DIOXIDE 19 mmol/L (22-29); CHLORIDE 100 mmol/L (98-107); GLOMERULAR FILTR. RATE CALC > 60 mL/min (>60); GLUCOSE,RANDOM 140 mg/dL (70-110); POTASSIUM 4.4 mmol/L (3.5-5.1); SODIUM SERUM 133 mmol/L (136-145); UREA NITROGEN, BLOOD 35 mg/dL (7-18)
[2019-11-15 08:10] VITALS: BP 160/119
[2019-11-15] MEDS ORDERED: FAMOTIDINE 20 MG TABLET PO SCH (09:00)
[2019-11-15] MEDS ORDERED: MULTIVITAMINS WITH MINERALS, THERAPEUTIC TABLET PO SCH (09:00)
[2019-11-15] MEDS: DOCUSATE SODIUM 100 MG CAPSULE PO SCH (09:00)
[2019-11-15] MEDS: BUMETANIDE 0.25 MG/ML 4 ML VIAL IVP SCH (09:00)
[2019-11-15] MEDS: ASPIRIN 81 MG CHEWABLE TABLET PO SCH (09:00)
== END 2019-11-15 11:20 | disposition left against medical advice (07) | DRG 194 ==
LOC: EMS 11:04 → 5S 14:37
PROVIDERS: ADMIT Internal Medicine; ATTEND Internal Medicine
DX: I11.0 Hypertensive heart disease with heart failure (principal); E43 Unspecified severe protein-calorie malnutrition; J18.9 Pneumonia, unspecified organism; I42.8 Other cardiomyopathies; R65.10 Systemic inflammatory response syndrome (SIRS) of non-infectious origin without acute organ dysfunction; I50.23 Acute on chronic systolic (congestive) heart failure; I82.4Z3 Acute embolism and thrombosis of unspecified deep veins of distal lower extremity, bilateral; L03.116 Cellulitis of left lower limb; F15.90 Other stimulant use, unspecified, uncomplicated; E11.9 Type 2 diabetes mellitus without complications; F17.210 Nicotine dependence, cigarettes, uncomplicated; F12.90 Cannabis use, unspecified, uncomplicated; N50.89 Other specified disorders of the male genital organs; N49.2 Inflammatory disorders of scrotum; Z53.29 Procedure and treatment not carried out because of patient's decision for other reasons; Z91.14 Patient's other noncompliance with medication regimen; Z68.24 Body mass index [BMI] 24.0-24.9, adult; Z91.19 Patient's noncompliance with other medical treatment and regimen; Z88.8 Allergy status to other drugs, medicaments and biological substances; Z59.0 Homelessness
CPT/HCPCS: 76870; 83605; 87040; 87086; 87205; 93005; 93970; 96365; G0378; J0696; J1644; J3490; J7050; J7060